=== PATIENT | male | born 1960 | race African-American/Black ===

== ENCOUNTER 2018-11-13 06:43 | Observation (INO) | payer OTHER ==
[2018-11-13 08:56] LABS: Basophils # (Auto) 0.1 K/mm3 (0.0-0.1); Basophils % (Auto) 0.8 % (0.0-1.8); Eosinophils # (Auto) 0.2 K/mm3 (0.0-0.4); Eosinophils % (Auto) 2.7 % (0.0-4.3); Hematocrit 46.8 % (35.5-45.6); Hemoglobin 15.8 gm/dl (11.8-15.2); Lymphocytes # (Auto) 1.9 K/mm3 (1.2-5.4); Lymphocytes % (Auto) 27.1 % (13.4-35.0); Mean Corpuscular HGB Conc 34 % (32-34); Mean Corpuscular Volume 88 fl (84-94); Monocytes # (Auto) 0.5 K/mm3 (0.0-0.8); Monocytes % (Auto) 7.9 % (0.0-7.3); Platelet Count 224 K/mm3 (140-440); Red Blood Count 5.32 M/mm3 (3.65-5.03); Red Cell Distribution Width 13.3 % (13.2-15.2)
[2018-11-13] MEDS ORDERED: ECOTRIN PO ONE (09:00)
[2018-11-13] MEDS ORDERED: NACL 0.9% 500 ML 500 ML IV SCH (09:00)
[2018-11-13 09:11] LABS: INR 0.85 (0.87-1.13)
[2018-11-13 09:12] LABS: BUN/Creatinine Ratio 22; Blood Urea Nitrogen 13 mg/dL (9-20); Hemolysis Index 24
[2018-11-13] MEDS ORDERED: HEPARIN/NS 5000 UNIT/500ML(CATH LAB) 1,000 ML IR ONE (10:20)
[2018-11-13] MEDS ORDERED: XYLOCAINE 2% INFILTRATI ONE (10:21)
[2018-11-13] MEDS: HEPARIN 10,000 UNITS/10 ML ONE ×4 (10:52→11:35)
[2018-11-13] MEDS: CALAN ONE ×2 (10:52→11:09)
[2018-11-13] MEDS: NITROGLYCERIN SYRINGE 3 ML ONE ×2 (10:53→11:09)
[2018-11-13] MEDS: VERSED ONE ×2 (11:05→11:07)
[2018-11-13] MEDS: SUBLIMAZE ONE ×2 (11:05→11:07)
[2018-11-13] MEDS ORDERED: ALUM-MAG HYDROX-SIMETH 200-200-20MG/5ML ONE (11:40)
[2018-11-13] MEDS ORDERED: BRILINTA ONE (11:40)
--- NOTE | 2018-11-13 12:19 | Cardiac Catherization Report ---
CARDIAC CATHETERIZATION AND CORONARY ANGIOPLASTY REASON FOR PROCEDURE: The patient is a 58-year-old man with multiple coronary risk factors, who underwent cardiac screening as outpatient. A CT chest, calcium score was ordered, which revealed a severe stenosis of the proximal segment of the mid obtuse marginal branch. Based on the severity of the stenosis, the patient was recommended for cardiac catheterization. PROCEDURE: 1. Left heart catheterization. 2. Selective coronary angiography. 3. Left ventricular angiography. 4. Coronary angioplasty and stenting of the mid obtuse marginal branch of the circumflex. 5. Sedation time start 11:05, end 11:40. The patient was prepped and draped in a sterile fashion after informed consent. The right radial cath site was prepped and draped after negative Bhargav's test. The right radial artery was entered using Seldinger technique followed by placement of a 6-Martiniquais hydrophilic sheath. Routine radial cocktail was administered via the sheath. Selective left and right coronary angiography was performed using #3.5 left Tree and a #4 right Tree. The right Tree was used for left ventricular angiography. The angiograms were reviewed. CORONARY ANGIOGRAPHY: There was moderate to severe, diffuse coronary ectasia. The left main coronary artery contained mild luminal irregularities. The left anterior descending artery similarly contained diffuse mild luminal irregularities involving the main LAD trunk and its diagonal branches. A medium size ramus intermedius artery contained diffuse mild luminal irregularities. The circumflex artery was a large system. The mid obtuse marginal branch contained a 95-99% stenosis of its proximal segment, extending from its ostium. Otherwise, luminal irregularities were noted in the rest of the circumflex system. The right coronary artery was also a large caliber vessel, dominant, and similarly contained diffuse mild atherosclerosis associated with moderate to severe ectasia. CORONARY ANGIOPLASTY: After review of the angiograms, ad hoc coronary angioplasty of the mid obtuse marginal branch was recommended. We selected a #3.0 XB guiding catheter and advanced to the left coronary ostium. A 0.014 inch Experimental Machinist 50 guidewire was introduced, and directed into the mid obtuse marginal. Predilatation angioplasty was then performed, using a 3.5 mm balloon catheter. Following angioplasty, we deployed a 4.0 x 8 mm Resolute drug-eluting stents, inflating the stent to optimal pressures. Following stenting, there was an excellent angiographic result, 0 residual stenosis, BIRDIE 3 flow was maintained down the vessel. Procedure was well tolerated by the patient and there were no complications. The catheters and the wires were removed, sheath removed, and hemostasis achieved using a TR band. CONCLUSION: 1. Outpatient cardiac catheterization reveals a critical stenosis of the proximal segment of a large mid obtuse marginal artery. 2. Well preserved left ventricular systolic function, ejection fraction 50-55%. 3. Successful ad hoc angioplasty and stenting of the obtuse marginal with excellent result following deployment of a 4.0 mm drug-eluting stent. JOB# [id number] CA/NTS
[2018-11-13] MEDS ORDERED: ZOFRAN IV PRN (12:28)
[2018-11-13] MEDS ORDERED: AMBIEN PO PRN (12:28)
[2018-11-13] MEDS ORDERED: ULTRAM PO PRN (12:28)
[2018-11-13] MEDS ORDERED: TYLENOL PO PRN (12:28)
[2018-11-13] MEDS ORDERED: NACL 0.9% 1000 ML 1,000 ML IV SCH (13:00)
[2018-11-13] MEDS: TOPROL XL PO SCH (15:32)
[2018-11-13] MEDS ORDERED: HumuLIN R SUB-Q SCH (16:30)
[2018-11-14] MEDS: BRILINTA PO SCH ×2 (00:11→09:40)
[2018-11-14] MEDS ORDERED: NITRO DUR TD SCH (06:00)
[2018-11-14 06:03] VITALS: BP 104/59
[2018-11-14 06:37] LABS: Basophils % (Auto) 0.6 % (0.0-1.8); Eosinophils # (Auto) 0.3 K/mm3 (0.0-0.4); Eosinophils % (Auto) 3.5 % (0.0-4.3); Hematocrit 44.8 % (35.5-45.6); Hemoglobin 15.1 gm/dl (11.8-15.2); Lymphocytes # (Auto) 2.1 K/mm3 (1.2-5.4); Lymphocytes % (Auto) 26.5 % (13.4-35.0); Mean Corpuscular HGB Conc 34 % (32-34); Mean Corpuscular Volume 88 fl (84-94); Monocytes # (Auto) 0.7 K/mm3 (0.0-0.8); Monocytes % (Auto) 9.1 % (0.0-7.3); Platelet Count 218 K/mm3 (140-440); Red Blood Count 5.08 M/mm3 (3.65-5.03); Red Cell Distribution Width 13.4 % (13.2-15.2)
[2018-11-14 06:57] LABS: Creatine Kinase MB 7.3 ng/mL (0.0-4.0)
[2018-11-14 07:00] LABS: BUN/Creatinine Ratio 16; Blood Urea Nitrogen 11 mg/dL (9-20); Calcium 8.7 mg/dL (8.4-10.2); Hemolysis Index 10
[2018-11-14 07:11] LABS: Chol/HDL Ratio 3.77 %; HDL Cholesterol 49 mg/dL (40-59); LDL Cholesterol,Direct 128 mg/dL (50-130)
--- NOTE | 2018-11-14 08:12 | XRay Report ---
AP CHEST :11/14/18 07:31 CLINICAL: Post PCI COMPARISON:None. FINDINGS: Normal heart and pulmonary vasculature. Aortic tortuosity and a focal bulge of the descending aorta. The lungs are normally expanded and clear. The bones and soft tissues are normal.No tubes or lines. IMPRESSION: No acute cardiopulmonary process.Hypertensive changes of the aorta and possible aneurysm of the descending aorta. Consider CT .
[2018-11-14] MEDS: TOPROL XL PO SCH (09:41)
[2018-11-14] MEDS ORDERED: BABY ASPIRIN PO SCH (10:00)
[2018-11-14] MEDS ORDERED: COZAAR PO SCH (10:00)
[2018-11-14] MEDS ORDERED: NORVASC PO SCH (10:00)
[2018-11-14] MEDS ORDERED: MICARDIS 40 MG PO SCH (10:00)
[2018-11-14] MEDS ORDERED: GLUCOTROL XL PO SCH (10:00)
--- NOTE | 2018-11-14 12:46 | Short Stay Summary ---
Short Stay Documentation Date of service: 11/14/18 - History H&P: obtained from office - Allergies and Medications Current Medications: Allergies No Known Allergies Allergy (Unverified 11/13/18 06:44) Home Medications Medication Instructions Recorded Confirmed Last Taken Type AtorvaSTATin [Lipitor] 20 mg PO DAILY 11/13/18 11/13/18 11/12/18 History 1 tab Metoprolol 50 mg PO DAILY 11/13/18 11/13/18 11/12/18 History 1 tab Micardis 40 mg PO DAILY 11/13/18 11/13/18 11/12/18 History 1 tab amLODIPine [Norvasc] 10 mg PO DAILY 11/13/18 11/13/18 11/12/18 History 1 tab glipiZIDE [glipiZIDE XL] 10 mg PO DAILY 11/13/18 11/13/18 11/12/18 History 1 tab Active Medications Acetaminophen (Tylenol) 650 mg PO Q4H PRN PRN Reason: Pain MILD(1-3)/Fever >100.5/REY Amlodipine Besylate (Norvasc) 10 mg PO DAILY [facility] Last Admin: 11/14/18 09:41 Dose: 10 mg Documented by: Aspirin (Baby Aspirin) 81 mg PO QDAY [facility] Last Admin: 11/14/18 09:40 Dose: 81 mg Documented by: Atorvastatin Calcium (Lipitor) 20 mg PO DAILY [facility] Last Admin: 11/14/18 09:42 Dose: 20 mg Documented by: Glipizide (Glucotrol Xl) 10 mg PO DAILY [facility] Last Admin: 11/14/18 09:40 Dose: 10 mg Documented by: Insulin Human Regular (Humulin R) 0 units SUB-Q [facility]; Protocol Last Admin: 11/14/18 00:11 Dose: Not Given Documented by: Losartan Potassium (Cozaar) 50 mg PO QDAY [facility] Last Admin: 11/14/18 09:42 Dose: 50 mg Documented by: Metoprolol Succinate (Toprol Xl) 50 mg PO QDAY [facility] Last Admin: 11/14/18 09:41 Dose: 50 mg Documented by: Nitroglycerin (Nitro Dur) 0.4 mg TD DAILY@0600 [facility] Last Admin: 11/14/18 06:36 Dose: 0.4 mg Documented by: Ondansetron HCl (Zofran) 4 mg IV Q8H PRN PRN Reason: N/V unrelieved by Veronica Ticagrelor (Brilinta) 90 mg PO BID JAZZ Last Admin: 11/14/18 09:40 Dose: 90 mg Documented by: Tramadol HCl (Ultram) 50 mg PO Q4H PRN PRN Reason: Pain, Mild (1-3) Zolpidem Tartrate (Ambien) 5 mg PO QHS PRN PRN Reason: Sleep - Physical exam HEENT: PERRLA Lungs: Clear to auscultation Heart: Regular rate, Normal S1, Normal S2 - Hospital course Hospital course: Stable overnight observation. Patient noted with mild increase in random blood glucose. Patient will be recommended to follow up with his pcp in the outpatient setting for close monitoring and further evaluation of his diabetes. - Disposition Condition at discharge: Good Disposition: [id number] TO HOME OR SELFCARE Short Stay Discharge Plan Activity: advance as tolerated Diet: low fat, low cholesterol, low salt, diabetic Wound: keep clean and dry Special Instructions: no heavy lifting (for 42/72 hours) Follow up with: CHELSEY CALIXTO MD [Primary Care Provider] - 7 Days TYRESE PACHECO MD [Staff Physician] - 7 Days Forms: CardCath PCI D/C Instructions Prescriptions: AtorvaSTATin [Lipitor] 40 mg PO QHS #30 tab Aspirin [Aspirin BABY CHEW TAB] 81 mg PO QDAY #30 tab.chew Ticagrelor [Brilinta] 90 mg PO BID #60 tablet
== END 2018-11-14 17:32 | disposition home or self-care (01) ==
LOC: CATHLABREC 06:43 → 4A 12:28
PROVIDERS: ADMIT Internal Medicine Cardiovascular Disease; ATTEND Internal Medicine Cardiovascular Disease
DX: E78.5 Hyperlipidemia, unspecified (principal); I10 Essential (primary) hypertension; E11.9 Type 2 diabetes mellitus without complications; Z79.82 Long term (current) use of aspirin; Z79.899 Other long term (current) drug therapy; Z90.89 Acquired absence of other organs; Z82.49 Family history of ischemic heart disease and other diseases of the circulatory system; Z83.3 Family history of diabetes mellitus; Z87.891 Personal history of nicotine dependence
CPT/HCPCS: 36415; 71045; 80048; 80061; 82550; 82553; 82962; 84484; 85025; 85347; 85610; 93005; 93010; 93458; A9270; C1725; C1769; C1874; C1887; C1894; C9600; G0378; J1644; J2250; J3010; J7040; 92928; Q9967